=== PATIENT | female | born 1960 | race Caucasian/White ===

== ENCOUNTER 2019-07-30 06:33 | Day surgery (SDC) | payer OTHER ==
[~2019-07-30] VITALS: Ht 162.6 cm; Wt 69.0 kg
[~2019-07-30 06:33] MED LIST: LINSEED OIL1 ML MISC
[2019-07-30] MEDS ORDERED: VITAMIN D2000 UNIT PO (06:53)
[2019-07-30] MEDS ORDERED: VITAMIN E400 UNI1 PO (06:54)
[2019-07-30] MEDS ORDERED: MAGNESIUM30 MG PO (06:55)
--- NOTE | 2019-07-30 08:27 | NUR ---
07/30/19 0827 Luli Ramirez 0816 PT TO PACU DOWSY BUT RESPONDS TO VERBAL COMMANDS DENIES PAIN.
--- NOTE | 2019-07-30 09:46 | NUR ---
PT IS ALERT, ORIENTED AND SUPPORTED BY HER JACQUI. PT IS HERE FOR HER FIRST SCOPE. SEEMED TO TOLERATE PREP APPROPRIATELY. HAD FEW QUESTIONS, AND PT DID REQUEST PRAYER. WILL FOLLOW NEEDED
--- NOTE | 2019-07-31 13:17 | OR ---
[facility] [address] [place], [place] [address] Signed DATE OF OPERATION: 07/30/2019 SURGEON: Diane Almanzar MD PREOPERATIVE DIAGNOSIS: Colon screening. POSTOPERATIVE DIAGNOSES: 1. Sigmoid diverticular change. 2. 1 cm polyp, right colon (excised). PROCEDURE: Total colonoscopy to cecum with cold snare polypectomy x1. ANESTHESIA: Intravenous sedation, fentanyl 100 mcg, Versed 4 mg. INDICATION: This 59-year-old white woman is a patient of Flor Hull, advanced registered nurse practitioner, and is referred for screening colonoscopy. The patient has not had colonoscopy in the past. She has no family history of colon cancer and no symptoms of bleeding, diarrhea, or constipation. She is admitted at this time to undergo screening colonoscopy, understands the risks of bleeding, infection, and perforation. FINDINGS: The prep was excellent. Complete colonoscopy was undertaken to the cecum without question. There was a small polyp behind a fold in the distal right colon, which was excised with cold snare polypectomy technique completely. There was scattered diverticula of sigmoid and left colon. There were no other findings of concern. DESCRIPTION OF PROCEDURE: The patient was brought to endoscopy suite and placed in lateral decubitus position, given intravenous sedation to the point of slurred speech and nystagmus with full cardiopulmonary monitoring. Digital rectal examination was normal. An Olympus video colonoscope was passed in the rectum and manipulated throughout the colon noting diverticular change of the sigmoid and left colon. The scope was ultimately advanced to the cecum. The ileocecal valve and appendiceal orifice were normal. The scope was then withdrawn from that point and close examination showed an abnormality in the distal right colon, which was directly over a fold. This was excised Electronically Signed By: DIANE ALMANZAR MD 07/31/19 1317 PATIENT NAME: TRES CHAPMAN OPERATIVE REPORT DATE OF : 64 REPORT #: [id number] PHYSICIAN: DIANE ALMANZAR MD PCP: FLOR HULL NP REPORT IS CONFIDENTIAL AND NOT TO BE RELEASED WITHOUT AUTHORIZATION [facility] [address] [place], [place] [address] Signed with cold snare polypectomy technique without problem. The polyp retrieved and passed for pathology. The scope was further withdrawn. Remaining colon showed no sign of polyps, only diverticular changes. Retroflexed view of the rectum was normal except for some internal hemorrhoidal changes. The scope was removed. The patient was taken to recovery room in good condition. CONCLUDING DIAGNOSES: 1. Polyp x1, status post snare excision in the right colon. 2. Diverticulosis. PLAN: If polyp proves to be adenoma, repeat in 3 years; if a hyperplastic polyp, 7 years, sooner if symptoms. She will return to the ongoing care of nurse practitionerKurtis. MD ELENI Mcmullen/PIERO /[id number] cc: Flor Hull NP Copies: FLOR HULL NP ~ Electronically Signed By: DIANE ALMANZAR MD 07/31/19 1317 PATIENT NAME: TRES CHAPMAN OPERATIVE REPORT DATE OF : 64 REPORT #: [id number] PHYSICIAN: DIANE ALMANZAR MD PCP: FLOR HULL NP REPORT IS CONFIDENTIAL AND NOT TO BE RELEASED WITHOUT AUTHORIZATION
--- NOTE | 2019-08-02 17:37 | PATH ---
[facility] [address] [place] [id number] Signed SPECIMEN(S): A ASCENDING POLYP SPECIMEN SOURCE: A. ASCENDING POLYP CLINICAL HISTORY: Screening. Postop: Divertic; polyp. MICROSCOPIC DESCRIPTION: Histologic sections of all submitted blocks are examined by light microscopy. These findings, together with the gross examination, support the pathologic diagnosis. FINAL PATHOLOGIC DIAGNOSIS: Colon, ascending polyp, polypectomy: - Tubular adenoma. - Negative for high-grade dysplasia or malignancy. NAL:cml:C2NR GROSS DESCRIPTION: The specimen, labeled "WB, ascending colon polyp," is received in formalin and consists of one pink-morales soft tissue fragment that measures 0.2 cm in greatest dimension. The specimen is entirely submitted in cassette (A1). JS (under the direct supervision of a pathologist) The Gross Description was prepared using a voice recognition system. The report was reviewed for accuracy; however, sound-alike word errors, addition and/or deletions may occur. If there is any question about this report, please contact Client Services. PERFORMING LABORATORY: The technical component was performed by [facility], [address] [place] [id number] (Airport Operations Officer: Altagracia Gonzalez MD; CLIA# [id number]). [facility], [address] [address] (Airport Operations Officer: Roland Ramirez MD; CLIA# [id number]). Diagnostician: Patti Johnston MD Pathologist Electronically Signed 08/02/2019 PATIENT NAME: TRES CHAPMAN PATHOLOGY DATE OF : 64 REPORT #: [id number] PHYSICIAN: STEPHEN PATHOLOGY PCP: FLOR RUVALCABA CYTOGENETIC TECHNOLOGIST REPORT IS CONFIDENTIAL AND NOT TO BE RELEASED WITHOUT AUTHORIZATION [address] [address] Signed Copies: ~ PATIENT NAME: TRES CHAPMAN PATHOLOGY DATE OF : 64 REPORT #: [id number] PHYSICIAN: STEPHEN PATHOLOGY PCP: FLOR RUVALCABA CYTOGENETIC TECHNOLOGIST REPORT IS CONFIDENTIAL AND NOT TO BE RELEASED WITHOUT AUTHORIZATION
== END 2019-07-30 08:55 | disposition home or self-care (01) ==
LOC: DS 06:33 → OPS 06:33 → DS 06:45 → OPS 06:45
PROVIDERS: Surgery
PROC: 0DBK8ZZ Excision of Ascending Colon, Via Natural or Artificial Opening Endoscopic (ICD-10-PCS; principal; 2019-07-30 06:45)
DX: Z12.11 Encounter for screening for malignant neoplasm of colon (principal); D12.2 Benign neoplasm of ascending colon; K57.30 Diverticulosis of large intestine without perforation or abscess without bleeding; B35.1 Tinea unguium; Z87.42 Personal history of other diseases of the female genital tract; Z78.0 Asymptomatic menopausal state
CPT/HCPCS: 99153; G0500; J2250; J3010; J7121